=== PATIENT | male | born 1940 | race Caucasian/White ===

== ENCOUNTER 2018-04-02 07:23 | Day surgery (SDC) | payer OTHER ==
[2018-04-01 16:00] VITALS: BMI 26.6
[2018-04-02] MEDS ORDERED: ceFAZolin SODIUM 1 GM VIAL ONE (07:29)
[2018-04-02] MEDS ORDERED: DEXAMETHASONE SOD PHOSPHATE 4 MG/1 ML VIAL ONE (07:29)
[2018-04-02] MEDS ORDERED: PROPOFOL 20 ML ONE ×5 (07:29)
[2018-04-02] MEDS ORDERED: ePHEDrine SULFATE 50 MG/1 ML AMPULE ONE (07:29)
[2018-04-02] MEDS ORDERED: KETOROLAC TROMETHAMINE 30 MG/1 ML VIAL ONE (07:29)
[2018-04-02] MEDS ORDERED: SUCCINYLCHOLINE CHLORIDE 200 MG/10 ML VIAL ONE (07:29)
[2018-04-02] MEDS ORDERED: oxyCODONE HCL 5 MG TABLET PO PRN ×2 (08:03)
[2018-04-02] MEDS ORDERED: ONDANSETRON 4 MG/2 ML VIAL IVPUSH PRN (08:03)
[2018-04-02] MEDS ORDERED: LACTATED RINGERS SOLUTION 1,000 ML IV SCH (08:15)
--- NOTE | 2018-04-02 08:15 | HP ---
[facility]ellite [facility] - Chief Complaint Chief Complaint: right shoulder pain History of Present Illness: right shoulder pain History Source: Patient Limitations to Obtaining History: No Limitations - Past Medical History Allergies/Adverse Reactions: Allergies Allergy/AdvReac Type Severity Reaction Status Date / Time No Known Drug Allergies Allergy Verified 04/02/18 07:55 - Current Medications Current Medications: Home Medications Medication Instructions Recorded Atorvastatin Ca [Lipitor] 10 mg PO HS 01/15/14 Quetiapine Fumarate [Seroquel -] 75 mg PO HS 01/15/14 Temazepam [Restoril] 15 mg PO HS 01/15/14 Gabapentin 300 mg PO QID 07/05/15 Quinine Sulfate 324 mg PO PRN 03/13/16 Loratadine [Claritin] 10 mg PO DAILY 04/01/18 Rizatriptan Benzoate [Rizatriptan] 10 mg PO PRN 04/01/18 Propranolol HCl 10 mg PO DAILY 04/02/18 Satellite Physical Exam - Physical Examination Vital Signs: Vital Signs Period Temp Pulse Resp BP Sys/East Pulse Ox Last 24 Hr 97.7 F 84 16 122/83 98 General Appearance: Well Nourished ENT: Clear Lung: Clear to auscultation Heart: Regular rate & rhythm Breasts: Soft Abdomen: Soft Extremities: No edema Satellite Impression/Plan - Impression/Plan Impression: right shoulder impingement syndrome Operative Procedure: right shoulder arthroscopy, decompression Date to be Performed: 04/02/18
[2018-04-02] MEDS ORDERED: ceFAZolin SODIUM 1 GM VIAL IVPB ONE (11:03)
--- NOTE | 2018-04-02 12:02 | OP ---
Operative Note - Note: Operative Date: 04/02/18 ([facility]) Pre-Operative Diagnosis: right shoulder impingement Operation: right shoulder arthroscopy with STEFANI CRONIN Post-Operative Diagnosis: Same as Pre-op Surgeon: Nikko Salguero Inside Tester: Dylon Mariano Anesthesiologist/SUPERVISOR FIREARMS: David Simpson Anesthesia: General, Local Specimens Removed: shavings Estimated Blood Loss (mls): 5 Operative Report Dictated: Yes
[2018-04-02 13:08] VITALS: TEMP 97.8
--- NOTE | 2018-04-02 13:21 | OP ---
DATE OF OPERATION: 04/02/2018 PREOPERATIVE DIAGNOSIS: Right shoulder impingement syndrome and adhesive capsulitis. POSTOPERATIVE DIAGNOSIS: Right shoulder impingement syndrome and adhesive capsulitis. PROCEDURE: Right shoulder arthroscopy, subacromial decompression, distal clavicle excision, and manipulation under anesthesia. DRAINS: None. COMPLICATIONS: None. SPECIMENS: Arthroscopic shavings. BLOOD LOSS: Minimal. BLOOD GIVEN: None. FLUID REPLACEMENT: 700. SURGEON: Cesar Joseph MD BARKEEPER: REMY Smith ANESTHESIA: David Simpson CRNA, right interscalene block with LMA anesthesia. INDICATIONS: This patient is a 77-year-old male with a preoperative diagnosis of right shoulder pain, subacromial impingement, AC joint arthritis, and adhesive capsulitis. After understanding the potential risks, complications, alternatives, benefits to surgery versus nonsurgical treatment, the patient elected to undergo this procedure. He understands that he may need get complete relief of his symptoms. He may need physical therapy. He may need additional treatment in the future. DESCRIPTION OF PROCEDURE: The patient was brought to the operating room. Peripheral IV place. IV sedation given. Right interscalene block was performed. LMA anesthesia was induced. He was placed into the beach chair position with ample padding throughout. I then did a manipulation under anesthesia. The patient had a hard endpoint at 120 degrees of forward flexion, 110 degrees of abduction. I was able to stretch him much further until we got to about 155 degrees of both. I was able to feel scar tissue stretching. After the manipulation under anesthesia, the patient's right upper extremity was prepped and draped in the usual sterile fashion. The bony landmarks were marked out with a marking pen. A posterior portal was established, and a diagnostic glenohumeral arthroscopy was performed. The patient had a mild amount of glenoid arthritis. The humeral head looked good. The labrum looked good and was very mildly frayed. The biceps tendon looked good. The biceps anchor looked good. The undersurface of the rotator cuff was mildly frayed, but otherwise, looked good. There was no intra-articular pathology. Next, our attention was turned to the subacromial space. A lateral portal was established with a spinal needle under direct visualization. The patient had a tremendous amount of adhesive inflammatory bursitis. Soft tissue bursectomy/extensive debridement was done with the ArthroCare wand and then a straight shaver. This revealed a very large subacromial and a moderate subclavicular spur. Photographs were taken and after decompression. The bony decompression was then done with the 5.5-mm oval bur. It was finetuned in reverse and then the straight shaver was used to finetune it and remove all bony and soft tissue debris. This was done on the undersurface of the distal clavicle as well as the acromion. Once this was done, there was much more room for inspection of the rotator cuff. The top surface of the rotator cuff looked good. There was no tear and moved as a unit with the humerus and looked pristine. The area was copiously irrigated and washed out. All instrumentation removed. Excess saline removed. The arthroscopy portal was closed with 3-0 nylon suture. The area was then washed and dried and covered with Aquacel dressing. He was placed into a shoulder sling. He was extubated. Total operative time was about 45 minutes. There were no complications during the case. The patient tolerated the procedure well and was brought to the ambulatory recovery room in stable condition. CESAR JOSEPH M.D. [id number]
[2018-04-02 16:57] VITALS: BP 125/76; PULSE 98
--- NOTE | 2018-04-03 15:56 | PATH ---
Surgical Pathology Report Patient Name: GAGANDEEP MIMS [facility]. Rec. #: [id number] /Age/Gender: 1940 (Age: 77) / M Account: [id number] Location: [facility] SURGICAL Taken: 04/02/2018 Received: 04/02/2018 Reported: 04/03/2018 Physicians: Nikko Salguero M.D. Specimen(s) Received RIGHT SHOULDER SHAVINGS Clinical History Right shoulder tear Final Diagnosis RIGHT SHOULDER, SHAVINGS: FRAGMENTS OF SYNOVIAL TISSUE, FIBROCARTILAGINOUS TISSUE, AND BONE SHOWING DEGENERATIVE CHANGE. UNREMARKABLE SKELETAL MUSCLE FRAGMENTS. Electronically Signed Alex Donis M.D. Gross Description Received in formalin, labeled "right shoulder shavings," is a 4.5 x 3.3 x 0.4 cm. aggregate of reagan-yellow soft tissue fragments. A sales representative sales manager portion is submitted in one cassette. /04/02/2018 saudi/04/02/2018
== END 2018-04-02 15:50 | disposition home or self-care (01) ==
LOC: JASU-SURG 07:23
PROVIDERS: ATTEND Orthopaedic Surgery
PROC: 0RNJ4ZZ Release Right Shoulder Joint, Percutaneous Endoscopic Approach (ICD-10-PCS; 2018-04-02)
PROC: 0PB94ZZ Excision of Right Clavicle, Percutaneous Endoscopic Approach (ICD-10-PCS; principal; 2018-04-02 09:30)
DX: M75.41 Impingement syndrome of right shoulder (principal); M75.01 Adhesive capsulitis of right shoulder
CPT/HCPCS: 88304-TC; 94760

== ENCOUNTER 2021-02-12 06:01 | Emergency (ER) | payer OTHER ==
[2021-02-12 06:17] VITALS: BMI 27.2
[2021-02-12 07:06] LABS: BASO % 0.4 % (0-2.0); EOS % 0.9 % (0-4.5); HEMATOCRIT 45.8 % (35.4-49); HEMOGLOBIN 15.5 GM/dL (11.7-16.9); LYMPH % 26.7 % (8-40); MCH 33.1 pg (25.7-33.7); MCHC 33.8 g/dl (32.0-35.9); MEAN CELL VOLUME 97.8 fl (80-96); MEAN PLT VOLUME 7.7 fl (7.5-11.1); MONO % 8.7 % (3.8-10.2); NEUT % 63.3 % (42.8-82.8); PLATELET COUNT 212 K/MM3 (134-434); RBC 4.68 M/mm3 (4.00-5.60); RDW 13.8 % (11.9-15.9); WHITE BLOOD COUNT 9.4 K/mm3 (4.0-10.0)
[2021-02-12 07:17] LABS: ACTIVATED PTT 25.1 SECONDS (25.2-36.5); INR 0.91 (0.83-1.09); PROTHROMBIN TIME (PATIENT) 11.2 SEC (9.7-13.0)
[2021-02-12 07:26] LABS: POTASSIUM 3.9 mmol/L (3.5-5.1)
[2021-02-12 07:28] LABS: CALCIUM 8.8 mg/dL (8.5-10.1)
[2021-02-12 07:29] LABS: ALBUMIN 3.8 g/dl (3.4-5.0); BLOOD UREA NITROGEN 25.3 mg/dL (7-18)
[2021-02-12 07:32] LABS: CREATININE 1.1 mg/dL (0.55-1.3)
[2021-02-12 07:33] LABS: BILIRUBIN,TOTAL 0.6 mg/dL (0.2-1); TOT PROT 6.7 g/dl (6.4-8.2)
[2021-02-12 07:46] LABS: EPI CELLS 4 /uL (0-25.1); HYALINE CASTS 0 /uL (0-3.1); URINE APPEARANCE CLEAR; URINE BACTERIA 1 /uL (0-1359); URINE BILIRUBIN NEGATIVE (NEGATIVE); URINE COLOR YELLOW; URINE GLUCOSE (UA) NEGATIVE (NEGATIVE); URINE KETONE NEGATIVE (NEGATIVE); URINE LEUK ESTERASE NEGATIVE (NEGATIVE); URINE NITRITE NEGATIVE (NEGATIVE); URINE PROTEIN NEGATIVE (NEGATIVE); URINE RBC 3621 /uL (0-23.9); URINE WBC 12 /uL (0-25.8)
[2021-02-12 11:18] VITALS: BP 125/87; PULSE 75; TEMP 98.4
== END 2021-02-12 11:20 | disposition home or self-care (01) ==
LOC: JER 06:01
DX: R31.0 Gross hematuria (principal)
CPT/HCPCS: 36415; 74177-TC; 80053; 81003; 85025; 85610; 85730; 86900; 87086; 99285-25; Q9967

== ENCOUNTER 2021-06-09 05:07 | Day surgery (SDC) | payer OTHER ==
[2021-06-07 15:27] VITALS: BMI 25.8
[2021-06-09 10:41] VITALS: TEMP 97.6
[2021-06-09 12:26] VITALS: BP 132/75; PULSE 67
== END 2021-06-09 13:17 | disposition home or self-care (01) ==
LOC: JASU-ENDO 05:07
PROVIDERS: ATTEND Internal Medicine Gastroenterology
PROC: 0DBM8ZX Excision of Descending Colon, Via Natural or Artificial Opening Endoscopic, Diagnostic (ICD-10-PCS; principal; 2021-06-09 11:00)
DX: Z12.11 Encounter for screening for malignant neoplasm of colon (principal); D12.4 Benign neoplasm of descending colon
CPT/HCPCS: 88305-TC

== ENCOUNTER 2021-09-05 04:19 | Day surgery (SDC) | payer OTHER ==
[2021-09-01 12:23] VITALS: BMI 26.6
[2021-09-05] MEDS ORDERED: ONDANSETRON 4 MG/2 ML VIAL IVPUSH PRN (09:33)
[2021-09-05] MEDS ORDERED: ACETAMINOPHEN 325 MG TABLET (FP) PO PRN (09:33)
[2021-09-05] MEDS ORDERED: LACTATED RINGERS SOLUTION 1,000 ML IV SCH (09:45)
[2021-09-05] MEDS ORDERED: ceFAZolin SODIUM 1 GM VIAL ONE (10:01)
[2021-09-05] MEDS ORDERED: LIDOCAINE HCL/PF 2% SDV 5ML VIAL ONE (10:01)
[2021-09-05] MEDS ORDERED: ROCURONIUM BROMIDE 50 MG/5 ML SYRINGE ONE (10:02)
[2021-09-05] MEDS ORDERED: PROPOFOL 20 ML ONE (10:02)
[2021-09-05] MEDS ORDERED: MIDAZOLAM HCL 2 MG/2 ML SINGLE DOSE VIAL ONE (10:02)
[2021-09-05] MEDS ORDERED: ceFAZolin SODIUM 1 GM VIAL IVPB ONE (10:35)
[2021-09-05] MEDS ORDERED: DEXAMETHASONE SOD PHOSPHATE 4 MG/1 ML VIAL ONE (10:57)
[2021-09-05] MEDS ORDERED: NEOSTIGMINE METHYLSULFATE 0.5 MG/ML - 10 ML MDV ONE (11:21)
[2021-09-05] MEDS ORDERED: GLYCOPYRROLATE 0.2 MG/1 ML VIAL ONE (11:21)
[2021-09-05 17:15] VITALS: BP 147/75; PULSE 90; TEMP 98.3
== END 2021-09-05 15:30 | disposition home or self-care (01) ==
LOC: JASU-SURG 04:19
PROVIDERS: ATTEND Surgery
PROC: 0WQF0ZZ Repair Abdominal Wall, Open Approach (ICD-10-PCS; principal; 2021-09-05 10:00)
DX: K43.2 Incisional hernia without obstruction or gangrene (principal)
CPT/HCPCS: 94760

== ENCOUNTER 2022-07-10 14:35 | Emergency (ER) | payer OTHER ==
[2022-07-10 14:50] VITALS: BP 131/80; PULSE 78; RESP 18; TEMP 98.1; BMI 25.8
== END 2022-07-10 15:59 | disposition home or self-care (01) ==
LOC: JERFT 14:35
DX: S08.0XXA Avulsion of scalp, initial encounter (principal); W22.8XXA Striking against or struck by other objects, initial encounter
CPT/HCPCS: 99281-25

== ENCOUNTER 2022-07-20 14:07 | Emergency (ER) | payer OTHER ==
[2022-07-20 14:14] VITALS: BP 148/83; PULSE 78; RESP 16; TEMP 98.3; BMI 25.8
== END 2022-07-20 15:18 | disposition home or self-care (01) ==
LOC: JERFT 14:07
DX: G43.909 Migraine, unspecified, not intractable, without status migrainosus (principal)
CPT/HCPCS: 99281-25

== ENCOUNTER 2023-11-12 18:54 | Emergency (ER) | payer OTHER ==
[2023-11-12 19:35] VITALS: BP 123/79; PULSE 80; RESP 18; TEMP 98.6; BMI 25.8
[2023-11-12 21:40] LABS: BASO % 0.4 % (0-2.0); EOS % 0.5 % (0-4.5); HEMATOCRIT 48.4 % (35.4-49); HEMOGLOBIN 16.3 GM/dL (11.7-16.9); LYMPH % 15.8 % (8-40); MCH 33.4 pg (25.7-33.7); MCHC 33.7 g/dl (32.0-35.9); MEAN CELL VOLUME 98.9 fl (80-96); MEAN PLT VOLUME 7.4 fl (7.5-11.1); MONO % 6.3 % (3.8-10.2); PLATELET COUNT 246 10^3/uL (134-434); RDW 13.3 % (11.9-15.9); WHITE BLOOD COUNT 11.5 K/mm3 (4.0-10.0)
[2023-11-12 22:01] LABS: URINE APPEARANCE CLEAR; URINE BILIRUBIN NEGATIVE (NEGATIVE); URINE COLOR YELLOW; URINE GLUCOSE (UA) NEGATIVE (NEGATIVE); URINE KETONE TRACE (NEGATIVE); URINE LEUK ESTERASE NEGATIVE (NEGATIVE); URINE NITRITE NEGATIVE (NEGATIVE); URINE PROTEIN NEGATIVE (NEGATIVE); URINE UROBILINOGEN 0.2 mg/dL (0.2-1.0)
[2023-11-12 22:05] LABS: POTASSIUM 4.3 mmol/L (3.5-5.1)
[2023-11-12 22:06] LABS: BLOOD UREA NITROGEN 16.6 mg/dL (7-18); CALCIUM 9.9 mg/dL (8.5-10.1)
[2023-11-12 22:09] LABS: PHOSPHOROUS 2.9 mg/dL (2.5-4.9)
[2023-11-12 22:10] LABS: MAGNESIUM 2.3 mg/dL (1.8-2.4)
[2023-11-12 22:11] LABS: BILIRUBIN,TOTAL 1.1 mg/dL (0.2-1); TOT PROT 7.2 g/dl (6.4-8.2)
== END 2023-11-13 00:15 | disposition home or self-care (01) ==
LOC: JER 18:54
DX: R50.9 Fever, unspecified (principal); R51.9 Headache, unspecified; R63.0 Anorexia; Z20.822 Contact with and (suspected) exposure to COVID-19
CPT/HCPCS: 0241U-QW; 36415; 70450-TC; 71045-TC-FY; 80053; 81003; 83735; 84100; 84484; 85025; 87086; 87186; 93005; 93010; 99285-25